=== PATIENT | male | born 1990 | race Caucasian/White ===

== ENCOUNTER 2017-01-15 18:51 | Emergency (ER) | payer BC ==
[2017-01-15 21:00] LABS: Hematocrit 46 % (42-52); Hemoglobin 15.8 g/dl (14.0-18.0); Mean Corpuscular HGB Conc 34 g/dl (31-36); Mean Corpuscular Hemoglobin 31 pg (27-31); Mean Corpuscular Volume 89 fL (80-94); Mean Platelet Volume 8 um3 (7.4-10.4); Red Blood Count 5.19 10^6/ul (4.0-5.4); Red Cell Distribution Width 13 % (10.5-15); White Blood Count 11.6 10^3/ul (3.5-10.8)
[2017-01-15 21:05] LABS: Urine Bilirubin Negative (Negative); Urine Glucose Negative (Negative); Urine Nitrite Negative (Negative)
[2017-01-15 21:15] LABS: Albumin 4.1 g/dL (3.2-5.2); BUN/Creatinine Ratio 19.3 (8-20); Calcium 9.9 mg/dL (8.6-10.3); EGFR African American 132.6 (>60); EGFR Non-African American 103.1 (>60); Globulin 2.4 g/dL (2-4); Total Bilirubin 0.6 mg/dL (0.2-1.0); Total Protein 6.5 g/dL (6.4-8.9)
--- NOTE | 2017-01-15 21:23 | RAD ---
CLINICAL HISTORY: Left flank pain COMPARISON: None TECHNIQUE: Multiple contiguous axial CT scans were obtained of the abdomen and pelvis, without intravenous contrast enhancement. Coronal and sagittal multiplanar reformations are submitted for review. Oral contrast was not administered. FINDINGS: The study is limited by the lack of intravenous contrast. This limits evaluation of the solid organs and vasculature. LUNG BASES: The lung bases are clear. LIVER: The liver is normal in shape, size, contour, and attenuation. BILE DUCTS: There is no intrahepatic or extrahepatic biliary dilatation. GALLBLADDER: The gallbladder is normal, without pericholecystic inflammatory change. PANCREAS: The pancreas is normal, without mass or ductal dilatation. SPLEEN: Normal in size and appearance. UPPER GI TRACT: Evaluation of the gastrointestinal tract is limited by incomplete gastric distention. The upper GI tract is unremarkable. SMALL BOWEL AND MESENTERY: The small bowel is normal in contour, course, and caliber. There is no obstruction or dilatation. COLON: The colon is normal in contour, course, caliber. There is no pericolonic inflammatory change. There is a tubular, vermiform, hollow viscus that is blind ending, and originates from the cecum, consistent with a normal appendix. There is no periappendiceal inflammatory change. This is best seen on axial images 113 through 132 ADRENALS: Normal bilaterally. KIDNEYS: There are punctate renal calyceal stones bilaterally measuring approximately 0.1 cm in size. There is no appreciable hydronephrosis BLADDER: The bladder is incompletely distended but is grossly normal. PELVIC ORGANS: The prostate gland is normal. The seminal vesicles are symmetric. AORTA: The aorta is normal. IVC: Unremarkable LYMPH NODES: There is no lymphadenopathy by size criteria. ABDOMINAL WALL: There is no evidence for abdominal wall hernia. BONES AND SOFT TISSUES: Degenerative changes are noted of the spine OTHER: None IMPRESSION: PUNCTATE NONOBSTRUCTING RENAL CALYCEAL STONES BILATERALLY
[2017-01-15] MEDS ORDERED: Ketorolac INJ* 60 MG/2 ML VIAL IM ONE (21:41)
[2017-01-15] MEDS ORDERED: Cyclobenzaprine TAB* 10 MG PO ONE (21:41)
--- NOTE | 2017-01-15 21:51 | ED ---
Berhane Fernando Rebecca, scribed for Gary Barcenasuel on 01/15/17 at 2043 . Back Pain - HPI Summary HPI Summary: Pt is a 26 y/o M who presents to ED c/o L flank pain for 3 days. Pain waxes and wanes in intensity and is currently severe, ranked 8/10. Sx aggravated by cutting wood, alleviated by nothing, unchanged by Advil (3 today, 4 yesterday). Denies rash and hematuria. Denies any recent injury. No PMHx kidney stones. PMHx back problems - current pain is different from previous back pain. - History of Current Complaint Chief Complaint: EDFlankPain Stated Complaint: LOWER BACK PAIN FOR 3 DAYS Time Seen by Provider: 01/15/17 20:29 Hx Obtained From: Patient Onset/Duration: Lasting Days - 3 days, Still Present Onset/Duration: Atraumatic, Still Present Back Pain Location: Is Discrete @ - L flank Severity Currently: Severe Pain Intensity: 8 Pain Scale Used: 0-10 Numeric Alleviating Symptom(s): Nothing Associated Signs And Symptoms: Positive: Negative - Allergies/Home Medications Allergies/Adverse Reactions: Allergies Allergy/AdvReac Type Severity Reaction Status Date / Time No Known Allergies Allergy Verified 01/15/17 18:53 PMH/Surg Hx/FS Hx/Imm Hx History: Denies: Hx Kidney Stones Musculoskeletal History: Reports: Hx Back Problems Neurological History: Comment Only: Other Neuro Impairments/Disorders - 2004 BACK INJURY, 13 FT FALL Infectious Disease History: Denies: Traveled Outside the [place] in Last 30 Days - Family History Known Family History: Positive: Hypertension - Social History Alcohol Use: Occasionally Substance Use Type: Reports: None Smoking Status (MU): Never Smoked Tobacco Review of Systems Negative: hematuria Positive: Arthralgia - L flank pain Negative: Rash All Other Systems Reviewed And Are Negative: Yes Physical Exam - Summary Physical Exam Summary: Appearance: Well appearing, no pain distress Skin: warm, dry, reflects adequate perfusion Head/face: normal Eyes: EOMI, QAMAR ENT: normal Neck: supple, nontender Respiratory: CTA, breath sounds present Cardiovascular: RRR, pulses symmetrical Abdomen: nontender, soft Bowel: present Musculoskeletal: strength/ROM intact, mild tenderness in the L flank Neuro: normal, sensory motor intact, A&Ox3 Triage Information Reviewed: Yes Vital Signs On Initial Exam: Initial Vitals Temp Pulse Resp BP Pulse Ox 98.1 F 88 16 137/91 98 01/15/17 18:53 01/15/17 18:53 01/15/17 18:53 01/15/17 18:53 01/15/17 18:53 Vital Signs Reviewed: Yes Diagnostics - Vital Signs Vital Signs Temp Pulse Resp BP Pulse Ox 01/15/17 18:53 98.1 F 88 16 137/91 98 - Laboratory Result Diagrams: 01/15/17 20:54 01/15/17 20:54 Lab Statement: Any lab studies that have been ordered have been reviewed, and results considered in the medical decision making process. - CT CT Abd/Pel CT Interpretation: Positive (See Comments) - PUNCTATE NONOBSTRUCTING RENAL CALYCEAL STONES BILATERALLY. ED physician reviewed this radiology report and agrees. CT Interpretation Completed By: Radiologist Re-Evaluation - Re-Evaluation First Eval Re-Evaluation Time: 21:45 Comment: Discussed CT results with the pt. Back Pain Course/Dx - Course Assessment/Plan: Pt is a 26 y/o M who presents to ED c/o L flank pain for 3 days. Pain waxes and wanes in intensity and is currently severe, ranked 8/10. Sx aggravated by cutting wood, alleviated by nothing, unchanged by Advil (3 today, 4 yesterday). Denies rash and hematuria. Denies any recent injury. No PMHx kidney stones. PMHx back problems - current pain is different from previous back pain. WBC of 11.6. CT Abd/Pel reveals PUNCTATE NONOBSTRUCTING RENAL CALYCEAL STONES BILATERALLY. In the ED course, pt received Flexeril and Toradol. Pt will be D/C to home with Dx of flank pain and musculoskeletal pain with Rx for Flexeril and Voltarin and a follow up with his PCP. He understands and agrees. Elevated BP noted and advised to f/u with PCP. - Diagnoses Provider Diagnoses: Flank pain, Musculoskeletal pain Discharge - Discharge Plan Condition: Stable Disposition: HOME Prescriptions: Cyclobenzaprine TAB* [Flexeril 10 MG TAB*] 10 mg PO TID PRN #20 tab MDD 3 PRN Reason: Pain Diclofenac Sodium EC TAB* [Voltaren EC TAB*] 50 mg PO TID PRN #20 tab.ec PRN Reason: Pain Patient Education Materials: Flank Pain (ED), Musculoskeletal Pain (ED) Referrals: Nader Kwan MD [Primary Care Provider] - 3 Days The documentation as recorded by the Berhane agarwal Rebecca accurately reflects the service I personally performed and the decisions made by , Crow Barcenas.
[2017-01-15 22:08] VITALS: BP 132/84
== END 2017-01-15 22:08 | disposition home or self-care (01) ==
LOC: ED 18:51
DX: R10.84 Generalized abdominal pain (principal); M79.1 Myalgia
CPT/HCPCS: 36415; 74176; 80053; 81003; 83690; 85025; 85610; 85730; 96372; 99283; A9270-GY; J1885